=== PATIENT | female | born 1990 | race Caucasian/White ===

== ENCOUNTER 2022-03-16 21:38 | Emergency (ER) | payer BC, OTHER, SELFPAY ==
[2022-03-16 22:03] VITALS: BP 134/93; PULSE 116; RESP 12; O2SAT 93; BMI 18.6
--- NOTE | 2022-03-16 22:17 | DI.RAD.S_ITS ---
PROCEDURE: XR CHEST 2V INDICATIONS: chest pain TECHNIQUE: 2 views of the chest were acquired. COMPARISON: None. FINDINGS: Surgical changes and devices: None. Lungs and pleura: Lungs are clear. No pleural effusions or pneumothorax. Mediastinum: Mediastinal contours are normal. Heart size is normal. Bones and chest wall: No suspicious bony abnormalities. Soft tissues appear unremarkable. IMPRESSION: Normal for age, source of current chest pain symptoms is not seen. Dictated by: Kenneth Sosa M.D. on 03/16/2022 at 22:48 Approved by: Kenneth Sosa M.D. on 03/16/2022 at 22:49
[2022-03-16 22:41] VITALS: BP 142/81; PULSE 93; RESP 19
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
[2022-03-17] MEDS: CYCLOBENZAPRINE 10 MG PREPACK 1 BOTTLE MISC (00:08)
== END 2022-03-17 00:16 | disposition home or self-care (01) ==
PROVIDERS: Emergency Provider Emergency Medicine
DX: S29.9XXA Unspecified injury of thorax, initial encounter (principal); V89.2XXA Person injured in unspecified motor-vehicle accident, traffic, initial encounter
CPT/HCPCS: 71046; 99281; 99283

== ENCOUNTER → 2022-11-27 12:15 | Outpatient (CLI) | payer OTHER, SELFPAY ==
--- NOTE | 2022-11-27 12:19 | DI.US.S_ITS ---
PROCEDURE: US OB >= 14 WEEKS FETUS INDICATIONS: ANATOMY OUTSIDE/PRIOR DATING DATA: Last menstrual period (LMP): 07/07/2022. LMP-based estimated date of delivery (TITO): 04/13/2023. First dating scan (date and location): 11/27/2022. Estimated date of delivery (TITO) from first dating scan: 04/09/2023. The calculations are made using the working TITO of 04/13/2023. TECHNIQUE: Real-time scanning was performed of the fetus, with image documentation and biometric measurements. Endovaginal scanning: Not performed COMPARISON: None. FINDINGS: General: A single living intrauterine gestation is present. Presentation: Vertex. Placenta: Placental position is posterior , without previa. Amniotic fluid index: 17.1 cm, normal range is 5-24 cm. Single deepest vertical pocket is 6.3 cm. heart rate: 137 beats per minute. Maternal cervical canal: 4.3 cm long. Normal lower limit is 2.5 cm. biometrics: Biparietal diameter: 5.0 cm, 21 weeks 1 day Head circumference: 17.9 cm, 20 weeks 3 days Abdominal circumference: 15.8 cm, 20 weeks 6 days Femur length: 3.6 cm, 21 weeks 2 days Clinically estimated gestational age: 20 weeks 3 days Composite gestational age from present scan: 21 weeks 0 days Estimated weight and percentile: 392 g, 77th percentile Anatomic survey: Neuro: Ventricles are non-dilated at less than 10 mm. Cisterna magna is normal at 3-11 mm. Cerebellum is normal in size and morphology. Nuchal skin fold: Normal at less than 6 mm between 14-21 weeks gestational age. Face: Nose and lips, facial profile are normal. Spine: No evidence for spina bifida. Heart: 4-chambered heart is present, with normal ventricular outflow tracts. There is an echogenic focus in the left ventricle. Diaphragm: Diaphragm is intact. Stomach: Left-sided stomach is present. Kidneys: No hydronephrosis. Normal is less than 5 mm in 2nd trimester, less than 7 mm in 3rd trimester. Cord: 3-vessel cord has orthotopic insertion. Bladder: Normal in size. Extremities: All 4 extremities identified. IMPRESSION: 1. Living 2nd trimester intrauterine . Current ultrasound age is 4 days greater than clinical age based on LMP. 2. Echogenic cardiac focus in the left ventricle. This is typically an incidental finding. 3. Otherwise unremarkable anatomy study. We strive to produce accurate, complete, and clear reports of imaging services. To assist us in improving patient care, this report was composed using standard report templates and voice recognition software. Therefore, it may contain abnormal punctuation, insertions and/or omissions. Occasional wrong-word or sound-alike substitutions may occur. Though we review the report and make efforts to correct it, we do recommend that the report be read carefully in proper context to recognize any text inaccuracies. Dictated by: Quinten An M.D. on 11/27/2022 at 15:09 Approved by: Quinten An M.D. on 11/27/2022 at 15:13
== END ==
PROVIDERS: PCP Nurse Practitioner Obstetrics & Gynecology; Referring Provider Nurse Practitioner Obstetrics & Gynecology; Visit Provider Nurse Practitioner Obstetrics & Gynecology
DX: Z36.89 Encounter for other specified antenatal screening (principal); Z3A.21 21 weeks gestation of pregnancy
CPT/HCPCS: 76811

== ENCOUNTER 2023-03-24 05:17 | Observation (INO) | payer OTHER, SELFPAY ==
[2023-03-24 06:26] LABS: Basophils Absolute Auto 0 /uL (0-100); Basophils Percent Auto 0.6 % (0-2); Eosinophils Absolute Auto 100 /uL (0-450); Eosinophils Percent Auto 1.3 % (2-4); Hematocrit 26.9 % (36-46); Hemoglobin 8.8 g/dL (12.0-16.0); Lymphocytes Absolute Auto 1800 /uL (1100-4500); Lymphocytes Percent Auto 26.7 % (25-40); Mean Corpuscular HGB Conc 32.6 % (30-36); Mean Corpuscular Hemoglobin 22.1 PG (26-34); Mean Corpuscular Volume 67.7 fL (80-100); Monocytes Absolute Auto 500 /uL (0-900); Neutrophils Absolute Auto 4300 /uL (1500-7000); Neutrophils Percent Auto 64.4 % (50-75); Platelet Count 237 X10^3/uL (150-400); Red Blood Cell Count 3.98 X10^6/uL (4.0-5.2); White Blood Cell Count 6.6 X10^3/uL (4.5-11.0)
[2023-03-24 06:29] LABS: Add Manual Diff / Slide Review SLIDE REVIEW
[2023-03-24 06:45] LABS: Anisocytosis 2+; Microcytosis 2+; Ovalocytes 2+
[2023-03-24 06:46] LABS: Hypochromasia 1+
[2023-03-24] MEDS: TERBUTALINE 1 MG/ML VIAL 0.25 MG SUBCUT (07:03)
--- NOTE | 2023-03-24 07:25 | PM.PROC.1 ---
Procedures Date/Time Date of procedure: 03/24/23 Time of procedure: 07:25 General Procedure description: External cephalic version A nonstress test was performed and was reactive. Breech presentation was confirmed by ultrasound. The head was in the right upper quadrant to mid upper abdomen. The spine was along the patient's left side. The abdomen was coated with mineral oil. The patient was using nitrous oxide. The first attempt was unsuccessful. The heart rate was in the 140s. With the second attempt the baby was moved to the transverse lie. On the third attempt the external cephalic version was successful. The patient was placed in the upright position. A repeat nonstress test was reactive. An abdominal binder was placed. The patient tolerated the procedure well. Complications: none
== END 2023-03-24 08:31 | disposition home or self-care (01) ==
PROVIDERS: Admitting Provider Nurse Practitioner Obstetrics & Gynecology; PCP Nurse Practitioner Obstetrics & Gynecology; Referring Provider Nurse Practitioner Obstetrics & Gynecology; Visit Provider Obstetrics & Gynecology
DX: O32.1XX0 Maternal care for breech presentation, not applicable or unspecified (principal); Z3A.37 37 weeks gestation of pregnancy
CPT/HCPCS: 59025; 59050; 59412; 76815; 85025; 86850; 86870; 86900; 86901; 96372; G0378; G0379

== ENCOUNTER 2023-04-22 08:15 | Observation (INO) | payer OTHER, SELFPAY ==
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
== END 2023-04-22 09:15 | disposition home or self-care (01) ==
PROVIDERS: Admitting Provider Nurse Practitioner Obstetrics & Gynecology; PCP Nurse Practitioner Obstetrics & Gynecology; Referring Provider Nurse Practitioner Obstetrics & Gynecology; Visit Provider Nurse Practitioner Obstetrics & Gynecology
DX: O42.12 Full-term premature rupture of membranes, onset of labor more than 24 hours following rupture (principal); Z3A.41 41 weeks gestation of pregnancy
CPT/HCPCS: 59025; 84112; G0378; G0379

== ENCOUNTER 2023-04-22 19:10 | Inpatient (IN) | payer OTHER, SELFPAY ==
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
[2023-04-22 20:06] LABS: Add Manual Diff / Slide Review NO; Basophils Absolute Auto 100 /uL (0-100); Basophils Percent Auto 0.8 % (0-2); Eosinophils Absolute Auto 100 /uL (0-450); Eosinophils Percent Auto 0.9 % (2-4); Hematocrit 34.4 % (36-46); Hemoglobin 11.5 g/dL (12.0-16.0); Lymphocytes Absolute Auto 1600 /uL (1100-4500); Lymphocytes Percent Auto 20.5 % (25-40); Mean Corpuscular HGB Conc 33.4 % (30-36); Mean Corpuscular Hemoglobin 24.2 PG (26-34); Mean Corpuscular Volume 72.6 fL (80-100); Monocytes Absolute Auto 600 /uL (0-900); Monocytes Percent Auto 7.1 % (3-14); Neutrophils Absolute Auto 5600 /uL (1500-7000); Neutrophils Percent Auto 70.7 % (50-75); Platelet Count 243 X10^3/uL (150-400); Red Blood Cell Count 4.74 X10^6/uL (4.0-5.2); Red Cell Distribution Width 29.8 % (11.6-14.8); White Blood Cell Count 7.9 X10^3/uL (4.5-11.0)
[2023-04-22] MEDS: OXYTOCIN PREMIX 30 UNIT/500 ML PLAST..BAG IV (20:27)
[2023-04-22] MEDS: LACTATED RINGERS 1,000 ML 100 ML IV (20:30)
[2023-04-22 20:37] VITALS: BP 118/86
[2023-04-22 21:32] LABS: Microcytosis 1+
--- NOTE | 2023-04-23 00:05 | PM.OBPNLAB ---
Date/Time Date Patient Seen: 04/23/23 Time Patient Seen: 00:07 Pain Control Pain control: tolerating well Comments: Coping well. Changing position frequently. Continues to leak steady amounts of fluid. Has been breathing through contractions for about 2 hours now. Consents to CE. VS: BP 118/86, HR 81bpm, T 36.4C Temporal Pelvic Exam Dilation (cm): 4 Effacement (%): 80 station: -1 Amniotic membrane status: Leaking Comments: suspect light meconium stained amniotic fluid Contractions Monitor mode: External Pitocin rate (mU/min): 6 Contraction frequency (min): 2 Contraction duration (min): 1 Contraction pattern: Regular Status status: Category l Heart Rate Baseline: 130 Monitor Accelerations: Present Monitor Decelerations: Absent Monitor Variability: Moderate Assessment and Plan Assessment: active labor Plan: continuous present management Comments: Difficult to distinguish light meconium staining vs brown discharge. Will continue to monitor. Continue pitocin titration maintain adequate contraction pattern. Encourage continued movement and balanced rest and activity.
[2023-04-23 00:29] VITALS: BP 119/77; PULSE 76; RESP 18; TEMP 36.1
--- NOTE | 2023-04-23 04:30 | PM.OBPNLAB ---
Date/Time Date Patient Seen: 04/23/23 Time Patient Seen: 04:05 Pain Control Pain control: other Comments: Breathing through strong contractions, not coping as well. Resistant to suggestions for comfort, not requesting anesthesia. Continues to leak lightly tinted fluid. VS: BP 119/77, HR 75, T35.8C Temporal Pelvic Exam Dilation (cm): 6 Effacement (%): 90 station: -1 Amniotic membrane status: Leaking Contractions Monitor mode: External Pitocin rate (mU/min): 4 Contraction frequency (min): 3 Contraction duration (min): 1 Contraction pattern: Regular Contraction intensity: Mild Status status: Category l Heart Rate Baseline: 115 Monitor Accelerations: Present Monitor Decelerations: Variable Monitor Variability: Moderate Assessment and Plan Assessment: active labor Plan: continuous present management Comments: Encouraged patient to try the tub which she moved to and found some relief, now coping better. Coached on breathing and positions. Partner and RN providinf continuous labor support. Reassess in 4 hours or sooner, PRN.
--- NOTE | 2023-04-23 06:55 | PM.OBPNLAB ---
Date/Time Date Patient Seen: 04/23/23 Time Patient Seen: 06:55 Pain Control Pain control: tolerating well (tub) Comments: feeling increasing pressure and occasional spontaneous urge to push. Struggling, but continuing to cope well in the tub. Unable to put her legs down d/t discomfort. VS: BP 119/77, HR 75, T 97.6F Temporal Pelvic Exam Dilation (cm): 9 Effacement (%): 100 station: 0 Amniotic membrane status: Leaking Contractions Monitor mode: External Pitocin rate (mU/min): 4 Contraction frequency (min): 5 Contraction duration (min): 1 Contraction pattern: Regular Contraction intensity: Strong/Firm Status status: Category l Heart Rate Baseline: 120 Monitor Accelerations: Present Monitor Decelerations: Early Assessment and Plan Assessment: active labor Plan: continuous present management Comments: Anticipate second stage soon. Continuous labor support. Will call RT for d/t meconium stained amniotic fluid.
[2023-04-23] MEDS: fentaNYL 100 MCG/2 ML INJ IV (10:51)
[2023-04-23] MEDS: TRANEXAMIC ACID 1,000 MG in SODIUM CHLORIDE 0.9% 100 ML 200 MG IV (11:14)
--- NOTE | 2023-04-23 11:15 | PM.OBPRVD ---
Labor & Delivery Delivery date: 04/23/23 Intrapartal Events: Prolonged 2nd Stage > 2.5 hours Cervical ripening method: none Induction method: per pitocin protocol Delivery monitor: external FHT and external uterine Route of delivery: vacuum extraction Indication for instrumentation: maternal exhaustion Episiotomy description: None L&D Laceration Description: Periurethral - 1st Degree, Perineal - 4th Degree and Vaginal - 2nd Degree Delivery repair: vicryl and chromic Estimated blood loss (mL): 400 Anesthesia Type: None Narrative: After more than 2-1/2 hours of vigorous pushing, the patient was exhausted and on made able to push effectively beyond +2-3 station therefore I was consulted by her at tending attendant honor bar for possible vacuum extraction. Clinical pelvimetry was adequate with estimated weight of 8 lb and the vertex in left occiput anterior position. No significant asynclicity was present. Following verbal consent vacuum extraction performed with 4 pulls required, no pop offs occurred, and suction pressure never exceeded 550 mm Hg. Local anesthesia was injected at the introitus has no pudendal block was available. Following a 3 hour and 5 minute 2nd stage, the patient delivered spontaneously over an intact perineum a viable female infant with Apgars of 8/9, and a weight of 4126 g (9 lb 1.5 oz.). No shoulder dystocia was encountered and there was no cord entanglement noted. Skin to skin contact was initiated immediately and cord clamping was delayed until pulsations had ceased. Once the umbilical cord was doubly clamped and cut, a cord blood sample was obtained for routine studies. The placenta was delivered with gentle cord traction and suprapubic countertraction. Inspection of the placenta showed it to be intact with borderline marginal cord insertion of a three-vessel cord. Examination of the perineum showed left-sided periurethral laceration, bilateral vaginal lacerations and 0.25 degree perineal laceration. It was suggested to the patient that a saddle block would afford her best relief of pain during what was to be an extensive repair and anesthesia was kind enough to come over in place the spinal for maximum patient comfort. Once the patient had satisfactory anesthesia, the repair was carried out with 3-0 chromic used to close the periurethral lacerations and 2-0 chromic used to close the vaginal lacerations. The 4th degree laceration was repaired with 0 Vicryl to close the deep space behind the sphincter and 0 Vicryl stitches to reapproximate the sphincter as well as both the anterior and posterior capsule. The 4th degree laceration extended approximately 1 cm beyond the anal verge and that mucosa was closed with 4-0 Monocryl interrupteds. Excellent reapproximation of the sphincter itself was achieved and closure of the remaining superficial portion of the laceration was achieved with 2-0 chromic in the usual manner. Reconstruction of the distal vaginal tissues as well as the perineal and sphincter was excellent from both a cosmetic and structural perspective. At the conclusion of the delivery process both mother and baby were doing well. Baby 1: Infant gender: Female Presentation: vertex Position: Left Occiput Anterior Placenta delivery description: Spontaneous Cord Vessel Description: 3 Vessels score (1 min): 8 score (5 min): 9 weight: 9 lb 1.54 oz Plan for aftercare: Routine care (With careful attention to delivery blood losses, pain relief, and stool softeners)
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
--- NOTE | 2023-04-23 11:31 | PM.PROC.1 ---
Procedures Date/Time Date of procedure: 04/23/23 Time of procedure: 11:20 General Procedure description: S) 32F s/p uncomplicated, unmedicated, term with grade 4 perineal tear. Surgeon request SAB for repair. uncomplicated, no significant PMH. No regular meds. O) VSS, pt alert, supine with baby skin to skin. A) 4th degree tear s/p unmedicated P) SAB Procedure: Discussed SAB with pt, consent obtained. Pt seated, monitors placed. betadine x 3 prep, sterile drape, gloves, mask. Lido skin wheal L3-4. Introducer, 25g Maria M, clear CSF. 0.8mL 0.75% bupiv. VSS. Adequate block for repair. Anesthesia time START 1110, END 1120
[2023-04-23] MEDS: METHYLERGONOVINE 0.2 MG/ML VIAL IM (11:45)
--- NOTE | 2023-04-23 12:16 | PM.OBPNLAB ---
Date/Time Date Patient Seen: 04/23/23 Time Patient Seen: 10:08 Pain Control Pain control: other Comments: Has been pushing for 2.5 hours with slow, but steady descent of vertex, now at +2 station with narrow pelvis. Patient and baby both stable Nette is tired and frustrated and asking for help. VS: BP 115/69, HR 96, T 97.6F Temporal Pelvic Exam Dilation (cm): 10 Effacement (%): 100 station: +2 Amniotic membrane status: Leaking Contractions Monitor mode: External Pitocin rate (mU/min): 4 Contraction frequency (min): 5 Contraction duration (min): 1 Contraction pattern: Regular Contraction intensity: Strong/Firm Status status: Category l Heart Rate Baseline: 110 Monitor Accelerations: Absent Monitor Decelerations: Early and Variable Monitor Variability: Moderate Assessment and Plan Assessment: other (Second stage- remote from delivery with maternal exhaustion ) Plan: other (Consult [facility] for vacuum assistance) Comments: Counseled patient on option and likely need for vacuum assistance and she consents to this. [facility] consulted and en route. RT called to standby and conveyor line battery charger notifed.
[2023-04-23] MEDS: KETOROLAC 30 MG/ML VIAL IV ×2 (14:22→20:14)
[2023-04-23] MEDS: LACTATED RINGERS 1,000 ML 100 ML IV (15:28)
[2023-04-23] MEDS: CEFAZOLIN 2 GM/100 ML PREMIX 100 ML IV (15:28)
[2023-04-23] MEDS: DERMOPLAST SPRAY 20% 60 ML 1 SPRAY TOP (20:14)
[2023-04-23] MEDS: ACETAMINOPHEN 325 MG TABLET 650 MG PO (20:15)
[2023-04-23] MEDS: DOCUSATE 100 MG CAPSULE PO (20:16)
[2023-04-23 21:33] LABS: Add Manual Diff / Slide Review NO; Basophils Absolute Auto 0 /uL (0-100); Basophils Percent Auto 0.1 % (0-2); Eosinophils Absolute Auto 0 /uL (0-450); Eosinophils Percent Auto 0.1 % (2-4); Hematocrit 26.2 % (36-46); Hemoglobin 8.7 g/dL (12.0-16.0); Lymphocytes Absolute Auto 1400 /uL (1100-4500); Lymphocytes Percent Auto 15.7 % (25-40); Mean Corpuscular HGB Conc 33.3 % (30-36); Mean Corpuscular Hemoglobin 24.7 PG (26-34); Monocytes Absolute Auto 700 /uL (0-900); Monocytes Percent Auto 7.7 % (3-14); Neutrophils Absolute Auto 6900 /uL (1500-7000); Neutrophils Percent Auto 76.4 % (50-75); Platelet Count 222 X10^3/uL (150-400); Red Blood Cell Count 3.54 X10^6/uL (4.0-5.2); Red Cell Distribution Width 29.5 % (11.6-14.8)
[2023-04-23 22:11] LABS: Anisocytosis 2+; Microcytosis 1+
[2023-04-24] MEDS: KETOROLAC 30 MG/ML VIAL IV ×2 (01:45→07:40)
[2023-04-24] MEDS: ACETAMINOPHEN 325 MG TABLET 650 MG PO ×4 (01:46→19:21)
[2023-04-24 06:33] LABS: Add Manual Diff / Slide Review SLIDE REVIEW; Basophils Absolute Auto 0 /uL (0-100); Basophils Percent Auto 0.3 % (0-2); Eosinophils Absolute Auto 0 /uL (0-450); Eosinophils Percent Auto 0.2 % (2-4); Hemoglobin 7.7 g/dL (12.0-16.0); Lymphocytes Absolute Auto 2200 /uL (1100-4500); Lymphocytes Percent Auto 25.1 % (25-40); Mean Corpuscular HGB Conc 33.6 % (30-36); Mean Corpuscular Hemoglobin 24.8 PG (26-34); Mean Corpuscular Volume 73.9 fL (80-100); Monocytes Absolute Auto 600 /uL (0-900); Monocytes Percent Auto 7.1 % (3-14); Neutrophils Absolute Auto 6000 /uL (1500-7000); Neutrophils Percent Auto 67.3 % (50-75); Platelet Count 196 X10^3/uL (150-400); Red Blood Cell Count 3.12 X10^6/uL (4.0-5.2); Red Cell Distribution Width 29.9 % (11.6-14.8); White Blood Cell Count 8.9 X10^3/uL (4.5-11.0)
[2023-04-24 07:05] LABS: Anisocytosis 3+; Microcytosis 1+; Ovalocytes 1+
--- NOTE | 2023-04-24 07:15 | PM.OBPN.1 ---
Subjective - OB Subjective Interval history: PPD1: Stable s/p VAVB with 4th degree laceration. Received 2 grams of cefazolin IV for prophylaxis yesterday. Had a Chen balloon in with copious urine output, removed at 0600 this morning. Was able to sleep well overnight (total 5.5 hours). Pain is well treated with Tylenol and Toradol, will switch to ibuprofen today. Vaginal bleeding is light without clots. Has not yet gotten up, but denies feeling light headed sitting up in bed. Has been working with RNs and to nurse, using a nipple shield because of flat nipples and difficulty with latch. Tolerating a general diet and hydrating well with oral fluids. Sent her partner home last night to sleep and care for animals and he will be back today. Exam Vital Signs (past 8 hours): BP 112/77, HR 76, RR 16, T 97.8F, SpO2 98% on RA Other: Fundus firm @ U-2, lochia light without clots. Perineum well approximated with moderate edema and mild ecchymosis. Objective Labs 04/24/23 06:17 Labs: Laboratory Results - last 24 hr 04/23/23 04/24/23 21:15 06:17 WBC 9.0 8.9 RBC 3.54 L 3.12 L Hgb 8.7 L 7.7 L Hct 26.2 L 23.0 L MCV 74.0 L 73.9 L MCH 24.7 L 24.8 L MCHC 33.3 33.6 RDW 29.5 H 29.9 H Plt Count 222 196 Neut % (Auto) 76.4 H 67.3 Lymph % (Auto) 15.7 L 25.1 [place] % (Auto) 7.7 7.1 Eos % (Auto) 0.1 L 0.2 L Baso % (Auto) 0.1 0.3 Neut # (Auto) 6900 6000 Lymph # (Auto) 1400 2200 [place] # (Auto) 700 600 Eos # (Auto) 0 0 Baso # (Auto) 0 0 RBC Morphology See below See below Anisocytosis 2+ H 3+ H Microcytosis 1+ H 1+ H Ovalocytes 1+ H Assessment & Plan Assessment and Plan (1) Anemia complicating puerperium: Status: Acute Assessment and plan: IV Fe today and 2nd dose tomorrow (04/25) (2) Fourth degree laceration of perineum during delivery, : Status: Acute Plan day: 1 plan OB: other Comments: Up ad nannette with assistance today. Recommend staying tonight for assistance with establishing , adequate pain relief on oral medication and bowel regimen. Time Spent With Patient Time: Total time spent is greater than 50% in coordination of care (as documented) at patient's floor/unit and/or counseling patient: Time with patient: 15-24 minutes
[2023-04-24] MEDS: IRON SUCROSE 300 MG in SODIUM CHLORIDE 0.9% 250 ML 176.667 MG IV (07:40)
[2023-04-24] MEDS: IBUPROFEN 600 MG TABLET PO ×2 (12:45→19:21)
[2023-04-24] MEDS: DOCUSATE 100 MG CAPSULE PO ×2 (12:45→21:01)
[2023-04-25] MEDS: IBUPROFEN 600 MG TABLET PO ×2 (01:22→07:19)
[2023-04-25] MEDS: ACETAMINOPHEN 325 MG TABLET 650 MG PO ×2 (01:22→07:19)
--- NOTE | 2023-04-25 08:17 | PM.OBDS.1 ---
Discharge Providers Provider Date of admission: 04/22/23 19:10 Discharge Date: 04/25/23 Primary care physician: Dixie Aldrich CNM Consults: 04/24/23 12:07 Consult to Scenario Writer Routine Comment: Discharge provider: Dixie Aldrich CNM Summary Hospital Course Date Patient Seen: 04/25/23 Time Patient Seen: 08:17 Diagnoses: Vacuum assisted vaginal , 4th degree laceration, PPH, anemia Hospital Course: PPD2: Stable s/p VAVB with 4th degree perineal laceration with PPH. Received 2 grams of cefazolin IV on day of delivery. Received IV Fe yestrday and another dose ordered prior to discharge. Has been , ambulating and voiding independently. with a nipple shield and feeling ready to do this at home on her own. Has passed gas with minimal discomfort. Taking docusate and Miralax, no BM yet. Jeramy is present and supportive and they are feeling ready to take their baby home this morning. Peripartum Data Delivery Method: Assisted Delivery Laceration Description: Perineal - 4th Degree Episiotomy description: None Procedures: Vacuum assistance, spinal anesthesia, 4th degree repair complications: none Discharge Diagnosis (1) Anemia complicating puerperium: Status: Acute (2) Fourth degree laceration of perineum during delivery, : Status: Acute Status at Discharge Cognitive/behavioral status at discharge: oriented and calm Functional status at discharge: independent ambulation Overall status at discharge: patient is progressing back to baseline Time Spent with Patient Time attestation: Total time spent providing and/or coordinating discharge services: Time spent: Greater than 30 minutes Objective Labs 04/24/23 06:17 Exam Vital Signs (past 8 hours): BP 110/77mmHg, HR 76bpm, RR 16, T 98.3F Temporal Other: Fundus firm @ U-2, lochia scant without clots. Perineum well approximated with minimal edema and ecchymosis. Discharge Plan Discharge Plan Patient Disposition: Home Provider Discharge Comment: After IV Fe infusion Discharge orders & Medications Prescriptions: New docusate sodium 100 mg Capsule 100 mg PO BID 21 Days Qty: 42 0RF polyethylene glycol 3350 17 gram Powder In Packet 17 g PO DAILY 14 Days Qty: 30 0RF ibuprofen 600 mg Tablet 600 mg PO Q6HR PRN (Reason: Pain, Mild (1-3)) 21 Days Qty: 60 1RF oxycodone 5 mg Tablet 5 mg PO Q4HR PRN (Reason: Pain, Moderate (4-6)) 14 Days Qty: 14 0RF Follow up/Referrals: Dixie Aldrich, EMILIANO [Primary Care Provider] - (Follow-up at 2 weeks PP in office on 05/07/23 @ 0945 Follow-up at 6 weeks PP in office on 06/03/23 @ 1030) Diet/Activity/Treatments Diet: Diet as Tolerated and Regular Diet comment: Bowel regimen: docusate, Miralax, fiber and hydration Activity: pelvic rest x 6 weeks, sitz soaks daily x 2 weeks Skin/Wound/Dressing Care Report to your healthcare provider any signs of infection, such as:: chills, fever, increased pain, unusual drainage and unusual redness Visit Report/Discharge Packet Instructions: DI for Labor and Delivery, Vaginal , Vaginal Laceration Stand Alone Forms: Patient Portal/API, Stroke Signs & Symptoms Discharge Data Primary Care Provider: Dixie Aldrich Discharges patient from system. Discharge Date/Time: 04/25/23 12:49
[2023-04-25] MEDS: polyethylene glycoL 3350 17 GM POWD.PACK PO (09:03)
[2023-04-25] MEDS: DOCUSATE 100 MG CAPSULE PO (09:09)
[2023-04-25] MEDS: RHO(D) IMMUNE GLOBULIN 1,500 UNIT SYRINGE 1500 UNIT IM (09:45)
[2023-04-25] MEDS: IRON SUCROSE 300 MG in SODIUM CHLORIDE 0.9% 250 ML 176.667 MG IV (09:45)
[2023-04-25 13:20] VITALS: BP 121/76; PULSE 78; RESP 14; TEMP 37.1
== END 2023-04-25 12:49 | disposition home or self-care (01) | DRG 768 ==
PROVIDERS: Admitting Provider Nurse Practitioner Obstetrics & Gynecology; PCP Nurse Practitioner Obstetrics & Gynecology; Referring Provider Nurse Practitioner Obstetrics & Gynecology; Visit Provider Nurse Practitioner Obstetrics & Gynecology
DX: O42.02 Full-term premature rupture of membranes, onset of labor within 24 hours of rupture (principal); Z37.0 Single live birth; O70.3 Fourth degree perineal laceration during delivery; O63.1 Prolonged second stage (of labor); O48.0 Post-term pregnancy; Z3A.41 41 weeks gestation of pregnancy; O75.81 Maternal exhaustion complicating labor and delivery; O90.81 Anemia of the puerperium; O42.12 Full-term premature rupture of membranes, onset of labor more than 24 hours following rupture
CPT/HCPCS: 36415; 59025; 59050; 59409; 84112; 85025; 86850; 86900; 86901; G0378; G0379; J0690; J1756; J1885; J2210; J2590; J2790; J3010

== ENCOUNTER → 2024-09-07 13:57 | Outpatient (CLI) | payer OTHER, SELFPAY ==
--- NOTE | 2024-09-07 13:59 | DI.US.S_ITS ---
PROCEDURE: US OB >= 14 WEEKS FETUS INDICATIONS: 20 week anatomy scan OUTSIDE/PRIOR DATING DATA: Last menstrual period (LMP): 04/11/2024 LMP-based estimated date of delivery (TITO): 01/16/2025 First dating scan (date and location): 06/21/2024 Estimated date of delivery (TITO) from first dating scan: 01/13/2025 The calculations are made using the working TITO of 01/16/2025 TECHNIQUE: Real-time scanning was performed of the fetus, with image documentation and biometric measurements. Endovaginal scanning: Not performed COMPARISON: [facility], OB >= 14 WEEKS FETUS, 11/27/2022, 12:27. FINDINGS: General: A single living intrauterine gestation is present. Presentation: Vertex Placenta: Placental position is anterior, without previa. Amniotic fluid index: 18.7 cm, normal range is 5-24 cm. Single deepest vertical pocket is 5.4 cm. heart rate: 135 beats per minute. Maternal cervical canal: Closed and measures 3.3 cm long. Normal lower limit is 2.5 cm. biometrics: Biparietal diameter: 5.2 cm, 21 weeks, 5 days. Head circumference: 19.8 cm, 22 weeks, 0 day. Abdominal circumference: 16.9 cm, 21 weeks, 6 days. Femur length: 3.8 cm, 22 weeks, 1 day. Clinically estimated gestational age: 21 weeks, 2 days. Composite gestational age from present scan: 22 weeks, 0 day. Estimated weight and percentile: 468 g, 81%. Anatomic survey: Neuro: Ventricles are non-dilated at less than 10 mm. Cisterna magna is normal at 3-11 mm. Cerebellum is normal in size and morphology. Nuchal skin fold: Normal at less than 6 mm between 14-21 weeks gestational age. Face: Nose and lips, facial profile are normal. Spine: No evidence for spina bifida. Heart: 4-chambered heart is present, with normal ventricular outflow tracts. Diaphragm: Diaphragm is intact. Stomach: Left-sided stomach is present. Kidneys: No hydronephrosis. Normal is less than 5 mm in 2nd trimester, less than 7 mm in 3rd trimester. Cord: 3-vessel cord has orthotopic insertion. Bladder: Normal in size. Extremities: All 4 extremities identified. IMPRESSION: 1. Single live intrauterine gestation with fetus in vertex presentation. heart rate is 135 beats per minute. Normal ALVIN at 18.7 cm. 2. Normal growth with estimated weight at 81%. 3. Normal anatomic survey. We strive to produce accurate, complete, and clear reports of imaging services. To assist us in improving patient care, this report was composed using standard report templates and voice recognition software. Therefore, it may contain abnormal punctuation, insertions and/or omissions. Occasional wrong-word or sound-alike substitutions may occur. Though we review the report and make efforts to correct it, we do recommend that the report be read carefully in proper context to recognize any text inaccuracies. Dictated by: Ray Gomez M.D. on 09/07/2024 at 15:12 Approved by: Ray Gomez M.D. on 09/07/2024 at 15:14
== END ==
PROVIDERS: PCP Nurse Practitioner Obstetrics & Gynecology; Referring Provider Nurse Practitioner Obstetrics & Gynecology; Visit Provider Nurse Practitioner Obstetrics & Gynecology
DX: Z34.92 Encounter for supervision of normal pregnancy, unspecified, second trimester (principal); Z3A.22 22 weeks gestation of pregnancy
CPT/HCPCS: 76811

== ENCOUNTER → 2024-12-15 16:13 | Outpatient (ROUT) | payer OTHER, SELFPAY ==
[2024-12-15 16:41] LABS: Alanine Aminotransferase 34 IU/L (<35); Albumin 3.7 g/dL (3.5-5.0); Albumin Globulin Ratio 1.3 (1.0-2.8); Alkaline Phosphatase 234 U/L (38-126); Aspartate Aminotransferase 42 IU/L (14-36); Bilirubin Total 0.3 mg/dL (0.2-1.3); Globulin 2.9 g/dL (1.7-4.1); HEMOLYSIS < 15 (0-50); Total Protein 6.6 g/dL (6.3-8.2)
== END ==
LOC: LAB 16:14
PROVIDERS: PCP Nurse Practitioner Obstetrics & Gynecology; Visit Provider Nurse Practitioner Obstetrics & Gynecology
DX: Z34.80 Encounter for supervision of other normal pregnancy, unspecified trimester (principal); L29.9 Pruritus, unspecified
CPT/HCPCS: 80076; 82542

== ENCOUNTER → 2024-12-21 11:26 | Outpatient (ROUT) | payer OTHER, SELFPAY ==
[2024-12-21 11:48] LABS: Alanine Aminotransferase 33 IU/L (<35); Albumin 3.6 g/dL (3.5-5.0); Albumin Globulin Ratio 1.3 (1.0-2.8); Alkaline Phosphatase 227 U/L (38-126); Aspartate Aminotransferase 42 IU/L (14-36); Bilirubin Total 0.4 mg/dL (0.2-1.3); Globulin 2.8 g/dL (1.7-4.1); HEMOLYSIS < 15 (0-50); Total Protein 6.4 g/dL (6.3-8.2)
[2024-12-22 13:41] LABS: Bile Acids 3.5 umol/L (0.0-10.0)
== END ==
PROVIDERS: PCP Nurse Practitioner Obstetrics & Gynecology; Visit Provider Advanced Practice Midwife
DX: Z34.80 Encounter for supervision of other normal pregnancy, unspecified trimester (principal); L29.9 Pruritus, unspecified
CPT/HCPCS: 80076; 82239

== ENCOUNTER → 2024-12-24 14:55 | Outpatient (ROUT) | payer OTHER, SELFPAY ==
[2024-12-24 15:12] LABS: Alanine Aminotransferase 29 IU/L (<35); Albumin 3.8 g/dL (3.5-5.0); Albumin Globulin Ratio 1.4 (1.0-2.8); Alkaline Phosphatase 213 U/L (38-126); Aspartate Aminotransferase 39 IU/L (14-36); Bilirubin Total 0.3 mg/dL (0.2-1.3); Bilirubin Unconjugated 0.1 mg/dL (0.0-1.1); Globulin 2.8 g/dL (1.7-4.1); HEMOLYSIS < 15 (0-50); Total Protein 6.6 g/dL (6.3-8.2)
== END ==
LOC: LAB 14:55
PROVIDERS: PCP Nurse Practitioner Obstetrics & Gynecology; Visit Provider Advanced Practice Midwife
DX: Z34.80 Encounter for supervision of other normal pregnancy, unspecified trimester (principal); L29.9 Pruritus, unspecified
CPT/HCPCS: 80076; 82239

== ENCOUNTER 2024-12-27 10:24 | Outpatient (CLI) | payer OTHER, SELFPAY ==
--- NOTE | 2024-12-27 10:34 | PM.PROC.1 ---
Procedures Date/Time Date of procedure: 12/27/24 Time of procedure: 10:30 General Procedure description: 34YO @ 37wks 4days by LMP concordant with 10wk US here for scheduled testing for ICP. Has a scheduled primary with in 12/30/2024. VS: BP 116/68, HR 80bpm, T 99.0F Temporal Baseline FHR: 145 bpm moderate variability Accels present Decels absent Reactive NST Continue testing as previously scheduled.
== END 2024-12-27 11:01 | disposition home or self-care (01) ==
LOC: OB 13:20
PROVIDERS: PCP Nurse Practitioner Obstetrics & Gynecology; Referring Provider Obstetrics & Gynecology; Visit Provider Obstetrics & Gynecology
DX: O47.1 False labor at or after 37 completed weeks of gestation (principal); O26.643 Intrahepatic cholestasis of pregnancy, third trimester; Z3A.37 37 weeks gestation of pregnancy
CPT/HCPCS: 59025; G0378; G0379

== ENCOUNTER 2024-12-30 05:38 | Inpatient (IN) | payer OTHER, SELFPAY ==
[2024-12-30] MEDS: LACTATED RINGERS 1,000 ML 999 ML IV (06:12)
[2024-12-30 06:41] VITALS: BP 114/72
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
[2024-12-30 06:53] LABS: Add Manual Diff / Slide Review NO; Basophils Absolute Auto 0 /uL (0-100); Basophils Percent Auto 0.7 % (0-2); Eosinophils Absolute Auto 100 /uL (0-450); Hematocrit 34.4 % (36-46); Hemoglobin 11.4 g/dL (12.0-16.0); Lymphocytes Absolute Auto 1600 /uL (1100-4500); Lymphocytes Percent Auto 24.9 % (25-40); Mean Corpuscular HGB Conc 33.2 % (30-36); Mean Corpuscular Hemoglobin 27.1 PG (26-34); Mean Corpuscular Volume 81.5 fL (80-100); Monocytes Absolute Auto 600 /uL (0-900); Monocytes Percent Auto 8.9 % (3-14); Neutrophils Absolute Auto 4200 /uL (1500-7000); Neutrophils Percent Auto 64.5 % (50-75); Platelet Count 210 X10^3/uL (150-400); Red Blood Cell Count 4.22 X10^6/uL (4.0-5.2); Red Cell Distribution Width 17.5 % (11.6-14.8); White Blood Cell Count 6.5 X10^3/uL (4.5-11.0)
[2024-12-30] MEDS: ACETAMINOPHEN 325 MG TABLET 975 MG PO (07:16)
[2024-12-30] MEDS: CITRIC ACID/SODIUM CITRATE 15 ML SOLUTION 30 ML PO (07:16)
--- NOTE | 2024-12-30 07:20 | SUR.OPER ---
Supine on padded OR bed, head on pillow, arms secured on padded arm boards at <90 degrees abduction, gel bump to right hip, legs uncrossed, safety belt at thigh, tape over blanket over lower legs.
[2024-12-30] MEDS: LACTATED RINGERS 1,000 ML 100 ML IV (07:22)
[2024-12-30 07:40] VITALS: BP 114/72; PULSE 73; RESP 18; TEMP 36.7
--- NOTE | 2024-12-30 07:40 | PM.PREOP ---
Pre-operative Note COVID-19 COVID-19 status: Not tested Interval Note History & Physical reviewed/Exam performed by Physician: Yes Changes to H&P: No
[2024-12-30] MEDS: CEFAZOLIN 2 GM/100 ML PREMIX 100 ML IV (07:54)
--- NOTE | 2024-12-30 09:04 | PM.PROC.1 ---
Procedures Date/Time Date of procedure: 12/30/24 Time of procedure: 08:18 General Procedure description: Quality Assurance Nurse Documentation I assisted the OB mental retardation aide in the section for this patient. My responsibilities included retracting and suctioning, providing fundal pressure during delivery and following with suture during closure. Please see the OB's note for details of the surgery.
[2024-12-30 09:16] VITALS: BP 123/81; PULSE 71; RESP 16; TEMP 36.2; O2SAT 100
[2024-12-30 09:21] VITALS: BP 127/77; PULSE 64; RESP 16; O2SAT 97
[2024-12-30 09:26] VITALS: BP 123/74; PULSE 83; RESP 16; O2SAT 98
--- NOTE | 2024-12-30 09:27 | PM.OBCS.1 ---
Operative Date/Time/Diagnoses Date of procedure: 12/30/24 Time of procedure: 08:00 Pre-op diagnosis: Intrauterine , 37+ 4 weeks gestational age Intrahepatic cholestasis of with elevated transaminase levels Prior 4th degree perineal laceration Rh-negative status Post-op diagnosis: same Procedure & Clinicians Procedure: Primary section (low transverse cervical) Same procedure as scheduled: Yes Indications: Nette is a 34-year-old at 37+ 4 weeks gestational age admitted for primary section. Delivery prior to 39 weeks is indicated due to the patient's diagnosis of intrahepatic cholestasis of for which she is currently on ursodiol 300 mg t.i.d.. testing has been reassuring. Indication for is due to the patient previously having delivered vaginally and sustaining 4th degree perineal laceration which was properly repaired and she does not wish to disrupt that repair with a 2nd vaginal . care has been excellent throughout with solid early dating and appropriate milestones. Patient is Rh negative. Surgeon: Juve Atkinson Knitted Garment Finisher: Dixie Aldrich Reason for Knitted Garment Finisher: Knitted Garment Finisher required for the safe, effective, and timely completion of this surgery. Anesthesia Type: Spinal Operative Notes Findings: Viable female infant BW 3125 gms, Apgars 8/5/9, delivered from the vertex presentation. Normal gravid anatomy. Closure Type: primary Specimen(s): cord blood Intraoperative meds administered: Ketorolac and Pitocin Applied: Catheter Estimated Blood Loss (mL): 700 Blood products transfused: none Procedure in detail: With her informed written consent, the patient was taken to the operating room and placed in the supine position for a primary section procedure, for the indication(s) above. The abdomen was prepped and draped in the usual manner for section and a pre-surgical timeout was taken per [facility] OR protocol. Once effective anesthesia was confirmed, a 15 cm transverse Pfannenstiel incision was made in the skin and taken down through the subcutaneous tissues to the deep fascia. The deep fascia was incised transversely, the rectus abdominal eyes bluntly and sharply, and the peritoneal cavity entered without difficulty. The lower uterine segment was visualized and the position/presentation palpated. A transverse incision at or above the vesicouterine reflection was made with Metzenbaum scissors and transverse hysterotomy performed near the midline. Amniotomy revealed clear fluid. The incision was extended bilaterally with digital traction and the infant was delivered easily from the vertex presentation. The infant was vigorous and cord clamping delayed for 60 seconds. The placenta was delivered intact using gentle cord traction and fundal massage.The uterine cavity was then cleared of any clot/debris first with a sloppy wet lap tape followed by a dry lap tape. Ring forceps were then applied to the angles and the midline of the incised GRANT. A primary closure of the uterus was then accomplished with #1 CCGS in a running interlocking stitch followed by a 2nd layer of #1 CCGS in a running interlocking imbricating stitch. An ascending uterine artery suture was required on the left side to control angle bleeding on that side. Once pelvic hemostasis was assured, the anterior peritoneum was closed with a running 2-0 Vicryl suture and the fascia closed with #1 Vicryl in a running stitch initiated at both angles and tying separately near the midline. The subcutaneous tissues were reapproximated with 2-0 plain catgut suture using inverted interrupted stitches. The skin edges were then brought together with 4-0 Monocryl in a subcuticular closure and the incision was reinforced with 1 Steri-Strips. An appropriate compression dressing was applied and the patient transferred to PACU for recovery and subsequent transfer to the Center for recuperation. Complications: none [place] Baby 1: Delivery Date: 12/30/24 Delivery Time: 08:18 Gender: Female Presentation: vertex Position: Left Occiput Anterior Placental Delivery Description: Spontaneous Cord Vessel Description: 3 Vessels score (1 min): 8 score (5 min): 5 score (10 min): 9 weight: 6 lb 14.231 oz Post-operative Condition: stable Disposition: PACU Aftercare: routine postop
[2024-12-30] MEDS: ACETAMINOPHEN 325 MG TABLET 650 MG PO ×2 (14:52→20:21)
[2024-12-30] MEDS: KETOROLAC 30 MG/ML VIAL IV ×2 (14:52→20:20)
[2024-12-31] MEDS: KETOROLAC 30 MG/ML VIAL IV (02:23)
[2024-12-31] MEDS: ACETAMINOPHEN 325 MG TABLET 650 MG PO ×3 (02:23→14:06)
[2024-12-31 06:50] LABS: Add Manual Diff / Slide Review NO; Basophils Absolute Auto 0 /uL (0-100); Basophils Percent Auto 0.1 % (0-2); Eosinophils Absolute Auto 100 /uL (0-450); Eosinophils Percent Auto 0.7 % (2-4); Hemoglobin 10.1 g/dL (12.0-16.0); Lymphocytes Absolute Auto 1900 /uL (1100-4500); Lymphocytes Percent Auto 22.1 % (25-40); Mean Corpuscular HGB Conc 33.6 % (30-36); Mean Corpuscular Hemoglobin 27.4 PG (26-34); Mean Corpuscular Volume 81.7 fL (80-100); Monocytes Absolute Auto 700 /uL (0-900); Monocytes Percent Auto 8.8 % (3-14); Neutrophils Absolute Auto 5800 /uL (1500-7000); Neutrophils Percent Auto 68.3 % (50-75); Platelet Count 227 X10^3/uL (150-400); Red Blood Cell Count 3.67 X10^6/uL (4.0-5.2); Red Cell Distribution Width 17.7 % (11.6-14.8); White Blood Cell Count 8.5 X10^3/uL (4.5-11.0)
[2024-12-31] MEDS: IBUPROFEN 600 MG TABLET PO ×2 (08:22→14:05)
[2024-12-31] MEDS: PRENATAL VIT,CALC/IRON/FOLIC 1 TABLET 1 TAB PO (08:22)
--- NOTE | 2024-12-31 11:31 | P.DS_ITS ---
Discharge Providers Provider Date of admission: 12/30/24 05:38 Discharge Date: 12/31/24 Primary care physician: Dixie Aldrich CNM Consults: 12/30/24 10:29 Consult to Medical Administrator Routine Comment: Discharge provider: Juve Atkinson MD Summary Hospital Course Date Patient Seen: 12/31/24 Time Patient Seen: 10:32 Diagnoses: Intrauterine gestation, 38+ 0 weeks estimated gestational age Prior 4th degree perineal laceration Intrahepatic cholestasis of with elevated transaminase levels Rh-negative status Hospital Course: Nette was admitted on the morning of 12/30/2024 and underwent an uneventful primary section. Full details of the procedure well summarized on my operative note on that date. Following delivery both mother and baby have done well with the mother experiencing prompt return of bowel and bladder function, she is ambulating independently, tolerating regular diet, and her pain is well controlled with oral pain medications. 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 Medications at discharge will include resumption of all preadmission medications as well as oxycodone 5 mg every 4 hours as needed for pain, dispense 10 with no refills, and ibuprofen 600 mg p.o. q.6 hours as needed for pain, dispense 30, with 2 refills. Peripartum Data Infant Delivery Method: Section Laceration Description: None Episiotomy description: None Procedures: Spinal block anesthetic Primary section (low transverse cervical) complications: none [place] 1: Gender: Female Disposition of : home Status at Discharge Cognitive/behavioral status at discharge: oriented Functional status at discharge: independent ambulation Overall status at discharge: patient is progressing back to baseline Time Spent with Patient Time attestation: Total time spent providing and/or coordinating discharge services: Time spent: Less than 30 minutes Objective Labs 12/31/24 06:23 Labs: Laboratory Results - last 24 hr 12/31/24 06:23 WBC 8.5 RBC 3.67 L Hgb 10.1 L Hct 30.0 L MCV 81.7 MCH 27.4 MCHC 33.6 RDW 17.7 H Plt Count 227 Neut % (Auto) 68.3 Lymph % (Auto) 22.1 L [place] % (Auto) 8.8 Eos % (Auto) 0.7 L Baso % (Auto) 0.1 Neut # (Auto) 5800 Lymph # (Auto) 1900 [place] # (Auto) 700 Eos # (Auto) 100 Baso # (Auto) 0 Exam Vital Signs (past 8 hours): Oxygen Delivery Method Room Air Const General: cooperative and comfortable Nutritional Appearance: average body habitus Orientation: alert and oriented x3 HENMT Head: normal to inspection, atraumatic and abrasion Ears: hearing grossly normal bilaterally Face and sinus: face symmetric Eyes General: appearance normal, both eyes and all related structures Conjunctivae: conjunctivae normal Sclera: sclerae normal EOM: EOM intact bilaterally Neck Neck: normal visual inspection Resp Effort & Inspection: normal respiratory effort and able to speak in complete sentences Auscultation: clear to auscultation bilaterally Cardio Rate: regular rate Rhythm: regular rhythm Heart Sounds: S1 normal, S2 normal and no murmurs GI Inspection: normal to inspection and incision (Incision intact, compression dressing removed and replaced with Aquacel) Palpation: soft, no hepatosplenomegaly, mass (Fundus U -5, firm, nontender) and tender (Mild, diffuse postsurgical tenderness) Auscultation: normal bowel sounds External Female Exam: other (Light to moderate lochia) Extrem General: no calf tenderness Psych Appearance: grossly normal Mental Status: mental status grossly normal Speech and Movement: speech and movement normal Mood: congruent mood Affect: normal affect Attitude: cooperative Thought Process: normal Thought Content: normal Judgment: judgment good Discharge Plan Discharge Plan Patient Disposition: Home Provider Discharge Comment: Please review the written instructions you received when you were discharged from the hospital. Your follow-up appointment will be scheduled for 1 week after delivery and we look forward to seeing you then. If however in the meanwhile, if you have any questions, concerns, or other issues, please contact me either through the office phone at [phone], or via the the patient portal. You can also contact Dixie at her office as needed. Discharge orders & Medications Prescriptions: New ibuprofen 600 mg Tablet 600 mg PO Q6H Qty: 30 2RF oxycodone 5 mg Tablet 5 mg PO Q4H PRN (Reason: Pain, Moderate (4-6)) Qty: 10 0RF Continued ibuprofen 600 mg Tablet 600 mg PO Q6HR PRN (Reason: Pain, Mild (1-3)) 21 Days Qty: 60 1RF Follow up/Referrals: Dixie Aldrich CNM [Primary Care Provider] - Juve Atkinson MD [Physician] - Discharge Health Status Multidrug resistant organism: No MDRO Diet/Activity/Treatments Diet: Diet as Tolerated Activity: As tolerated Other treatments: [id number] Tylenol and/or ibuprofen may be used for additional pain relief. [id number] stool softeners and/or MiraLax may be used as needed for constipation. Skin/Wound/Dressing Care Report to your healthcare provider any signs of infection, such as:: chills, fever, increased pain, unusual drainage and unusual redness Dressing: Dressing will be removed at the time of your one-week postop visit Visit Report/Discharge Packet Instructions: DI for , DI for and Nipple Soreness, DI for Prescription Opioid Use Discharge Data Primary Care Provider: Dixie Aldrich
== END 2024-12-31 14:40 | disposition home or self-care (01) | DRG 788 ==
PROVIDERS: Admitting Provider Obstetrics & Gynecology; PCP Nurse Practitioner Obstetrics & Gynecology; Referring Provider Obstetrics & Gynecology; Visit Provider Obstetrics & Gynecology
PROC: 10D00Z1 Extraction of Products of Conception, Low, Open Approach (ICD-10-PCS; CPT 59514; principal; 2024-12-30 07:45)
DX: O26.643 Intrahepatic cholestasis of pregnancy, third trimester (principal); Z87.59 Personal history of other complications of pregnancy, childbirth and the puerperium; Z3A.37 37 weeks gestation of pregnancy; Z37.0 Single live birth
CPT/HCPCS: 36415; 59050; 85025; 86850; 86870; 86900; 86901; J0690; J1100; J1885; J2274; J2405